=== PATIENT | male | born 1965 | race Caucasian/White ===

== ENCOUNTER 2024-05-11 12:40 | Inpatient (IN) | payer MEDICARE ==
[~2024-05-11] VITALS: Wt 89.5 kg
--- NOTE | 2024-05-11 17:30 | NUR ---
PT BROUGHT TO FLOOR BY EMS, SLIDE BOARD UTILIZED TO TRANSFER PT FROM EMS BED TO OUR BED, PT REPORTED INCREASED PAIN TO LEFT SURGICAL SITE. LEFT AKA ASSESED, ORIGINAL SURGICAL DRESSING IN PLACE, CLEAN AND FREE OF DRAINAGE. PT ASSESSED AND BELONGINGS BROUGHT TO PT ROOM, PT REPORTS ALL ELECTRONICS ARE IN THE ROOM AND PT CALLED FOR PIZZA TO BE DELIVERED. PT IN AT BEDSIDE AT THIS TIME, PT REPORTS 2/10 PAIN AT THIS TIME BUT IT SPIKES WHEN HE MOVES. PT NOW RESTING IN BED, BED ALARM ON AND CALL LIGHT IN REACH, PT DENIES FURTHER NEEDS
[2024-05-11] MEDS ORDERED: CENTRUM ULTRA1 EACH PO (18:56)
[2024-05-11] MEDS ORDERED: Acetaminophen 325 MG TAB PO PRN (19:30)
[2024-05-11] MEDS ORDERED: Famotidine 20 MG TAB PO PRN (19:30)
[2024-05-11] MEDS ORDERED: oxyCODONE 5 MG TAB PO PRN (19:30)
[2024-05-11] MEDS ORDERED: Docusate Sodium 100 MG CAP PO PRN (19:30)
[2024-05-11] MEDS ORDERED: Polyethylene Glycol 3350 Powder 17 GM PACKET PO PRN (19:30)
[2024-05-11] MEDS ORDERED: Bisacodyl 5 MG TAB PO PRN (19:30)
--- NOTE | 2024-05-11 19:31 | NUR ---
REPORT TO CURTIS RN
[2024-05-11 19:45] VITALS: BP 122/71
--- NOTE | 2024-05-11 21:00 | NUR ---
Nurse into assess patient and explained prior to. Patient initially states "no you may not". Explained he has the right to refuse, then states "oh I was just choking". Patient makes odd conversation. Doesn't answer questions in a serious manner.
--- NOTE | 2024-05-12 05:02 | NUR ---
Patient has been on cell phone visiting off and on through the night.
[2024-05-12 07:16] VITALS: BP 166/90
[2024-05-12] MEDS ORDERED: Multivitamin TAB PO SCH (09:00)
--- NOTE | 2024-05-12 18:00 | NUR ---
Pt asked by PLANT SAFETY LEADER if he could transfer into his wheel chair via sliding board as PLANT SAFETY LEADER was told in report that was how he transfered. Pt got very upset and asked why she wanted him to transfer to the wheelchair, she told him that his bed was saturated in urine and BM so she wanted to get his bed cleaned up. Pt told her no he has not transfered yet. PLANT SAFETY LEADER said that was fine and left the room. PLANT SAFETY LEADER notified this nurse of the situation and nurse notified PLANT SAFETY LEADER that per report he had not tranfered yet or seen PT/OT for an eval yet and we were not sure how he was transfering yet as he had not transfered up to this point. As we discussed this pts bed alarm started to sound, nurse went into his room and found that he had transfered himself from his bed to his wheelchair by himself. As I entered the pt is yelling at me stating that "you guys think I am doing drugs", "you guys think I am a liar", "Im not going to allow you guys to call me lazy and say I don't do anything", etc. This nurse started cleaning pts bed up that was completely soiled with urine and BM. There was also BM on the floor. As nurse was getting new beding pt came into the sol and by the nurses station with no pants or brief on and a soiled pillow between his legs. Nurse asked pt to return to his room to get cleaned up. Pt did return to his room. Nurse asked pt if she could help him clean up, pt refused. Pt continued to make rude remarks throughout the time the nurse was in his room. After bed was cleaned up, nurse looked for a slidingboard to help pt back to his bed, no slidingboard was found pt was getting impatient and was ready to get back into bed. Nurse was worried that he would try to transfer again by himself if I went looking for a slidingboard. Nurse helped pt get back into bed, max assist. Wheelchair was cleaned, and placed across the room in attempts from preventing pt from self transfering again. Nurse notified pt that his chair would have to stay across the room so he did not transfer himself again. Pt states "Watch me" Nurse educated pt how unsafe transfering at this time without staff with him is. Pt voices understanding. Pt then asked for his pain medication and APAP. Both given.
--- NOTE | 2024-05-12 19:00 | NUR ---
Report received from Nereida OBREGON.
[2024-05-12 19:25] VITALS: BP 146/90
--- NOTE | 2024-05-12 22:30 | NUR ---
Patient sitting up in bed slunched over with phone. Nurse inquires about pain. States "why should I be in horrific pain" "do you want me to "? Denies pain or needs at this time.
--- NOTE | 2024-05-13 03:35 | NUR ---
Patient remains awake sitting up in bed on phone. Denies pain. Coke given per request.
[2024-05-13 07:00] VITALS: BP 145/84
[2024-05-13 19:00] VITALS: BP 176/83
--- NOTE | 2024-05-13 19:00 | NUR ---
Report received from Chris OBREGON.
--- NOTE | 2024-05-13 20:37 | NUR ---
Patient reports he just had BM in trashcan at bedside. states just put his butt over side of bed. "It comes fast". States his pads are clean and he wiped himself with bathwipes. Chux underneath him are clean. Wipes hands with bathwipes. Instructed to call for assist and trash in room emptied. Tylenol given for moderate throbbing left BKA pain. Dressing CDI. When question pain scale number states a number in the millions. Then states no it's not that.
--- NOTE | 2024-05-14 06:24 | NUR ---
PATIENT REQUESTS LONNIE AND TYLENOL FOR L AKA PAIN. DOESN'T RATE IS MODERATE INTERMITTENT THROBBING. PAIN MEDS GIVEN. NOTED PATIENTS LEFT INNER THIGH, GROIN AREA IS REDDENED.
[2024-05-14 07:43] LABS: HEMATOCRIT 36.4 % (42.0-52.0); HEMOGLOBIN 12.1 g/dL (13.5-18.0); MEAN CELL VOLUME 84 fl (78-100); MEAN CORPUSCULAR HEMOGLOBIN 28 pg (27-31); MEAN CORPUSCULAR HGB CONC 33 g/dL (33-37); MEAN PLATELET VOLUME 10.4 fl (7.4-10.4); PLATELET COUNT 458 K/mm3 (130-400); RED BLOOD COUNT 4.32 M/mm3 (4.20-5.60); RED CELL DISTRIBUTION WIDTH 16.6 % (11.5-14.5); WHITE BLOOD COUNT 17.5 K/mm3 (4.8-10.8)
[2024-05-14 07:49] LABS: ALBUMIN 3.1 g/dL (3.5-5.0)
[2024-05-14 07:51] LABS: CALCIUM 9.3 mg/dL (8.3-10.5)
[2024-05-14 07:52] LABS: TOTAL PROTEIN 7.1 g/dL (6.4-8.3)
[2024-05-14 07:54] LABS: TOTAL BILIRUBIN 0.2 mg/dL (0.2-1.2)
[2024-05-14 08:29] VITALS: BP 151/105
[2024-05-14 08:53] LABS: LYMPHOCYTE 14 % (20-51); MONOCYTE 10 % (3-10); NEUTROPHILS 76 % (42-75)
--- NOTE | 2024-05-14 11:21 | NUR ---
PT ALERT AND ORIENTED, PT GIVEN SHOWER BY MADELAINE OBREGON, PT GIVEN MEDICATIONS BY MADELAINE OBREGON. PT ASSESSED WITHOUT COMPLICATION. PT ASSESSED BY THERAPY TEAMS. PT RESTING IN WHEELCHAIR ON PHONE CALL AT THIS TIME, PT REQUESTS PAIN MEDICATION.
--- NOTE | 2024-05-14 14:46 | NUR ---
spoke to dr hanley staff in regards to pts elevated wbc count now awaiting a call back with provider wishes
--- NOTE | 2024-05-14 15:20 | NUR ---
Spoke with Rafael. He would like to go home. He states he is at his prior level of function. He agrees to have a primary caregiver here at [facility]. He would like Dr. Rosen. He wants a new wheelchair. Standard width. Performance light weight w/c. He would like to use [employer] in [place]. will need a face to face and orders for this wheel chair.
--- NOTE | 2024-05-14 15:39 | NUR ---
PROVIDER DARÍO NURSE TO SEND URGENT MESSAGE AND AWAIT HIS RESPONSE
--- NOTE | 2024-05-14 16:01 | NUR ---
PROVIDER DARÍO APPROVAL TO REMOVE BANDAGE IF NEEDED, STATES IT NEEDS TO BE RE WRAPPED AFTER INSPECTION
--- NOTE | 2024-05-14 16:06 | NUR ---
PT INFORMED OF HIGH WBC
--- NOTE | 2024-05-14 18:33 | NUR ---
TALKED WITH PT ABOUT RESTING IN ROOM UNCOVERED, THIS NURSE BROUGHT PT BLANKETS TO COVER UP WITH, PT AGREEABLE
--- NOTE | 2024-05-14 18:51 | NUR ---
THIS NURSE DISCUSSED PT EXPOSURE WHILE MINOR IS IN THE ROOM, PT STATED "SORRY THAT IS MY BAD, I WILL JUST KEEP HER OUT OF HERE"
[2024-05-14 19:00] VITALS: BP 160/90
--- NOTE | 2024-05-14 20:30 | NUR ---
PATIENT COMPLAINT OF REDNESS AND ITCHING IN EUSEBIA AREA. EUSEBIA AREA IS REDDENED. PROVIDER WALLACE FORREST AWARE. ORDERS RECEIVED
[2024-05-14] MEDS ORDERED: Miconazole 2% Topical Powder BOTTLE TP SCH (21:00)
--- NOTE | 2024-05-14 22:00 | NUR ---
Left stump dressing change to assess for infection with permission from ortho. Pictures obtained and shared with wound care team. Incision well approximated. Periwound slightly red as expected postop. Moderate amount of serous drainage on old dressing. Noted serous drainage seeping from incision at 6 position. No purulent drainage noted. No odor. Mild to moderate swelling as expected. Dressing reapplied with xeroform over incision. Covered with abd pads x2, wrapped in kerlix then james wraps.
--- NOTE | 2024-05-15 00:59 | NUR ---
PT REQUESTED ADDITIONAL PAIN MEDICATION, A DOSE WAS PULLED BY ZAID OBRIEN, REQUESTED FROM MARLENY OBREGON, AT [id number]. AT THIS POINT ZAID OBRIEN, HANDED DE MEDICATION TO MARLENY OBREGON, WHO MISSED CHARTING. AT THIS TIME THIS RN DOES NOT FEEL COMFORTABLE GIVING AN EXTRA DOSE OF ROXICODONE 5MG THERE IS NO ACURATE TIME CHARTED FOR THE LAST DOSE GIVEN.
[2024-05-15] MEDS ORDERED: diphenhydrAMINE 25 MG CAP PO PRN (03:00)
[2024-05-15 07:33] VITALS: BP 149/86
[2024-05-15 08:05] LABS: HEMOGLOBIN 12.5 g/dL (13.5-18.0); MEAN CELL VOLUME 84 fl (78-100); MEAN CORPUSCULAR HEMOGLOBIN 28 pg (27-31); MEAN CORPUSCULAR HGB CONC 33 g/dL (33-37); MEAN PLATELET VOLUME 9.6 fl (7.4-10.4); PLATELET COUNT 515 K/mm3 (130-400); RED CELL DISTRIBUTION WIDTH 16.6 % (11.5-14.5); WHITE BLOOD COUNT 16.8 K/mm3 (4.8-10.8)
[2024-05-15 08:47] LABS: LYMPHOCYTE 17 % (20-51); MONOCYTE 12 % (3-10); NEUTROPHILS 68 % (42-75)
--- NOTE | 2024-05-15 11:03 | NUR ---
Spoke with Rafael and his Irish (on the phone). Advised that his WBC is somewhat down. but not a a safe level. the hospital feels it would be in his benefit to stay to watch this. He does have the right to leave if he wants but it is not advised at this time. We realize he is at his prior level of function and not wanting to participate in therapies per his statements. It is his choice to leave or stay. This manager rn case wishes him to make an informed decision before leaving. Irish states that it's Yue choice. I agreed with her. It is Rafael's choice but would like for him to be informed of why we asking him to stay.
--- NOTE | 2024-05-15 12:01 | NUR ---
PT. REFUSES TO HAVE DRSG CHANGE ON LEFT STUMP AT THIS TIME. STATES IT IS FINE AND NOT TO TOUCH IT.
--- NOTE | 2024-05-15 15:59 | NUR ---
At pt bedside to assess L leg and dressing. Pt initially resists. Begins picking at james wrap, pulls down top edge, shows this RN that top 3-4cm of incision are not covered by dressing. Pt takes dressing completely off and says "see there it is." Pt starts running fingers over incision, talking about how good it looks. Tell pt that he needs to keep hands off of incision. Pt starts rolling up used james wraps to reuse on his dressing. This RN tells pt that I am not going to reuse wraps. They are visibly soiled and have animal hair on them. Pt then picks up ABD that had been covering incision and was commenting on minimal serosanguenous drainage within ABD. Take dressing from pt and throw into trash, telling him I am going to get new dressing supplies. Pt reaches over, takes ABD from trash, puts it up to his face, sniffs and states "is that infection? That smells like infection." Pt then sticks index finger inside dressing, wipes it through area of drainage, sticks finger up to nose then licks it and states "it doesn't taste like infection." This RN tells pt that is disgusting, tells him to throw dressing away and leaves room to get new dressing supplies. Upon return, pt still sitting up in bed, surgical incision EELER. No active drainage noted to incision. Distal end of stump and skin directly surrounding incision red and warm. All serafin remain intact. Pt has boxes of items from home sitting on lap and in bed upon this RN return. Assist to move boxes from bed. Pt refuses to lie back while new dressing is applied. Pt wants to assist but allows SABAS Fountain. Apply xeroform guaze to suture line, ABD x 2 over incision and stump then wrap with james x 2 to apply moderate pressure to wound. Instruct pt that he needs to leave dressing in place and keep hands/fingers off of incision. Apply hand building maintenance technician to pt hands. Note that pt groin and scrotum red/irritated. Thick fluid noted to be collected under pt exposed periarea. Pt unwilling to allow this RN to cleanse area. Assures me that he has used bath wipes and reapplied medicated powder. Pt is agreeable to letting me change out pad underneath him.
[2024-05-15 19:00] VITALS: BP 147/91
[2024-05-16 06:02] LABS: HEMATOCRIT 39.7 % (42.0-52.0); HEMOGLOBIN 12.9 g/dL (13.5-18.0); MEAN CELL VOLUME 85 fl (78-100); MEAN CORPUSCULAR HEMOGLOBIN 28 pg (27-31); MEAN CORPUSCULAR HGB CONC 33 g/dL (33-37); MEAN PLATELET VOLUME 9.6 fl (7.4-10.4); PLATELET COUNT 543 K/mm3 (130-400); RED BLOOD COUNT 4.68 M/mm3 (4.20-5.60); RED CELL DISTRIBUTION WIDTH 16.5 % (11.5-14.5); WHITE BLOOD COUNT 15.6 K/mm3 (4.8-10.8)
[2024-05-16 06:16] LABS: ALBUMIN 3.4 g/dL (3.5-5.0)
[2024-05-16 06:17] LABS: CALCIUM 9.2 mg/dL (8.3-10.5)
[2024-05-16 06:18] LABS: TOTAL PROTEIN 7.7 g/dL (6.4-8.3)
[2024-05-16 06:20] LABS: TOTAL BILIRUBIN 0.3 mg/dL (0.2-1.2)
[2024-05-16 08:06] VITALS: BP 134/83
[2024-05-16 08:49] LABS: LYMPHOCYTE 20 % (20-51); MONOCYTE 18 % (3-10); NEUTROPHILS 60 % (42-75)
--- NOTE | 2024-05-16 09:16 | NUR ---
DRESSED PTS LEFT LEG WTIH TELFA, ABD PAD, AND 3" GAUW RAP AND MIKAYLA WRAP.
[2024-05-16] MEDS ORDERED: TYLENOL 8 HOUR650 M1 PO (09:21)
[2024-05-16] MEDS ORDERED: POTASSIUM CHLO10 ME6 PO (09:21)
[2024-05-16] MEDS ORDERED: BENADRYL PO (09:22)
[2024-05-16] MEDS ORDERED: ROXICODONE 55 MG/TAB PO ×2 (09:22→11:11)
[2024-05-16] MEDS ORDERED: DESENEX43 GM TP (09:22)
== END 2024-05-16 10:20 | disposition home or self-care (01) | DRG 300 ==
LOC: MED/SURG 12:40
PROVIDERS: Family Medicine; ADMIT Family Medicine
DX: E11.52 Type 2 diabetes mellitus with diabetic peripheral angiopathy with gangrene (principal); I96 Gangrene, not elsewhere classified; Z89.612 Acquired absence of left leg above knee